=== PATIENT | female | born 1990 | race Two or more races ===

== ENCOUNTER 2017-10-03 14:13 | Emergency (ER) | payer OTHER ==
[~2017-10-03] VITALS: Ht 160 cm; Wt 72.6 kg
[2017-10-03 16:07] LABS: HEMATOCRIT 40.5 % (34.6-47.8); HEMOGLOBIN 13.1 g/dL (11.7-16.4); WHITE BLOOD COUNT 12.7 x10^3/uL (3.4-10)
[2017-10-03 16:08] LABS: BLOOD UREA NITROGEN 10 mg/dL (7-18)
[2017-10-03 17:45] VITALS: BP 118/81
== END 2017-10-03 17:47 | disposition home or self-care (01) ==
LOC: ED 17:40
DX: O20.0 Threatened abortion (principal); Z3A.01 Less than 8 weeks gestation of pregnancy
CPT/HCPCS: 36415; 76830; 80048; 81001; 82040; 84702; 85025; 86901; 87086; 99285